=== PATIENT | male | born 1940 | race Caucasian/White ===

== ENCOUNTER 2024-04-23 13:07 | Emergency (ER) | payer BC ==
[2024-04-23 13:30] VITALS: RESP 16
[2024-04-23 13:44] VITALS: PULSE 80
[2024-04-23 13:54] LABS: Basophils # (A) 0.1 k/uL (0-0.2); Basophils % (A) 1 %; Eosinophils # (A) 0.1 k/uL (0-0.7); Eosinophils % (A) 1 %; HCT 41.7 % (39.0-53.0); Lymphocytes # (A) 1.9 k/uL (1.0-4.8); Lymphocytes % (A) 20 %; MCH 31.7 pg (25.0-35.0); MCHC 33.6 g/dL (31.0-37.0); MCV 94.5 fL (80.0-100.0); Mean Platelet Volume 7.7; Monocytes # (A) 0.6 k/uL (0-1.0); Monocytes % (A) 7 %; Neutrophils # (A) 6.7 k/uL (1.3-7.7); Neutrophils % (A) 70 %; Platelet Count 383 k/uL (150-450); RBC 4.42 m/uL (4.30-5.90); RDW 12.4 % (11.5-15.5); WBC 9.6 k/uL (3.8-10.6)
--- NOTE | 2024-04-23 14:01 | XR ---
EXAMINATION TYPE: XR ribs LT w pa chest xray DATE OF EXAM: 04/23/2024 1:54 PM COMPARISON: 07/29/2009. CLINICAL INDICATION: Male, 83 years old with history of sycope, chest wall pain; PHH, pain TECHNIQUE: XR ribs LT w pa chest xray; Frontal and oblique views of the ribs with frontal chest radio graph. FINDINGS: Somewhat limited exam due to overlapping structures. The ribs have a normal appearance. No evidence of fracture. Overall, the lungs are clear. The cardiac silhouette is normal in size. The remaining osseous structures are intact. IMPRESSION: No displaced fractures definitively visualized. [facility], , 04/23/2024 1:59 PM
[2024-04-23 14:07] LABS: ALT 18 U/L (4-49); AST 24 U/L (17-59); African American GFR (CKD) >90 (>60 ml/min/1.73 sqM); Albumin 4.4 g/dL (3.5-5.0); Alkaline Phosphatase 67 U/L (38-126); Anion Gap 11 mmol/L; Blood Urea Nitrogen 17 mg/dL (9-20); Calcium 9.8 mg/dL (8.4-10.2); Carbon Dioxide 23 mmol/L (22-30); Chloride 100 mmol/L (98-107); Glucose 157 mg/dL (74-99); INR 0.9 (<1.2); Magnesium 1.9 mg/dL (1.6-2.3); Non-African American GFR(CKD) 79 (>60 ml/min/1.73 sqM); Partial Thromboplastin Time 24.6 sec (22.0-30.0); Potassium 4.3 mmol/L (3.5-5.1); Prothrombin Time 10.6 sec (10.0-12.5); Sodium 134 mmol/L (137-145); Total Bilirubin 0.3 mg/dL (0.2-1.3); Total Protein 6.7 g/dL (6.3-8.2)
--- NOTE | 2024-04-23 15:04 | CT ---
EXAMINATION TYPE: CT brain cspine wo con DATE OF EXAM: 04/23/2024 2:07 PM COMPARISON: None available. CLINICAL INDICATION: Male, 83 years old with history of syncope; FALL/SYNCOPE TECHNIQUE: Brain: Multiple axial CT images of the brain were obtained without IV contrast. Cspine: Axial CT images from the skull base to the inferior aspect of T2 we obtained without intraven ous contrast. Coronal and sagittal reformatted images were also reviewed. . CT DLP: 1407.4 mGycm, Automated exposure control for dose reduction was used. FINDINGS: Brain: No acute intraparenchymal hemorrhage. Small relatively isodense subdural hematoma along the left fron toparietal convexity measuring up to 5 mm in greatest diameter (coronal image 44). There is minimal 2 mm of rightward shift of the septum pellucidum. Ventricles and sulci are prominent compatible genera lized cerebral volume loss. Vascular calcifications involving the carotid and vertebral arteries. Pat herminia periventricular and subcortical white matter hypoattenuation likely reflect chronic microvascular ischemic disease. No depressed calvarial fracture. Cervical spine: Fracture: None. Osseous structures: Multilevel intervertebral disc space loss and associated endplate degenerative ch anges. Anterior ossified formation noted at multiple levels. Mild anterolisthesis of C2 on C3. Revers al of the normal cervical spine lordotic curvature. Spinal canal/Neural Foramina: Multilevel facet arthropathy and uncovertebral hypertrophy in combinati on with posterior disc osteophyte complex disease cause varying degrees of spinal canal and neural fo raminal stenosis. Overall, evaluation of the spinal canal severely limited due to motion and streak a rtifact. Neck soft tissues: Prevertebral soft tissues are within normal limits. Other: The airway is patent. The lung apices demonstrate 5 over nodule in the medial right lung apex (image 111). Fluid distention of the esophagus suggesting reflux. IMPRESSION: 1. Small isodense subdural hematoma along the left frontoparietal convexity measuring up to 5 mm in greatest diameter. Minimal associated rightward midline shift as above. 2. No acute fracture or traumatic subluxation of the cervical spine. Multilevel cervical spine degen erative changes as above. 3. Fluid distention of the upper thoracic esophagus suggesting significant reflux. *Critical findings were discussed with Dr. Stone at 2:54 PM on 04/23/2024. [facility], Workstation: [id number], 04/23/2024 3:02 PM
[2024-04-23 15:23] VITALS: BP 136/74; TEMP 97.8
--- NOTE | 2024-04-23 15:46 | ED ---
General Adult HPI - General Chief complaint: Syncope Stated complaint: Syncope Time Seen by Provider: 04/23/24 13:10 Source: patient, EMS Mode of arrival: EMS - History of Present Illness Initial comments: 83-year-old male presents emergency department after a syncopal episode. Patient was out eating lunch with his family when they state that he slumped over in the chair and slowly fell all the way down to the ground. They did not believe that he hit his head. Patient did sustain some chest wall trauma and is complaining of some left-sided chest pain to palpation. Patient was only out for a couple of seconds. By the time EMS arrived he was alert and oriented x 4. Family states that he lives alone. He does have some memory issues. He denies any other falls recently. Patient denies having any inciting symptoms before the episode happened. He denies chest pain, shortness of breath. No visual changes. Patient has no headache, nausea or vomiting. Patient is "prediabetic". Glucose was within normal limits. He was placed in a c-collar due to protocol. Patient denies any pain, numbness or tingling in his arms or legs. No other alleviating, precipitating or modifying factors - Related Data Allergies Allergy/AdvReac Type Severity Reaction Status Date / Time No Known Allergies Allergy Verified 04/23/24 13:30 Review of Systems ROS Statement: Those systems with pertinent positive or pertinent negative responses have been documented in the HPI. ROS Other: All systems not noted in ROS Statement are negative. Past Medical History Past Medical History: Hyperlipidemia, Hypertension, Myocardial Infarction (DC) Additional Past Medical History / Comment(s): Pre-diabetic, Alzheimer's Disease, DC in 1983, Small isodense subdural hematoma along the left frontoparietal convexity measuring up to 5mm (04/23/24) History of Any Multi-Drug Resistant Organisms: None Reported Past Surgical History: Adenoidectomy, Tonsillectomy Past Psychological History: No Psychological Hx Reported Smoking Status: Never smoker Past Alcohol Use History: Rare Past Drug Use History: None Reported General Exam General appearance: alert, in no apparent distress Head exam: Present: atraumatic, normocephalic, normal inspection, other (No obvious external signs of injury) Eye exam: Present: normal appearance, PERRL, EOMI. Absent: scleral icterus, conjunctival injection, periorbital swelling ENT exam: Present: normal exam, mucous membranes moist Neck exam: Present: normal inspection. Absent: tenderness, meningismus, lymphadenopathy Respiratory exam: Present: normal lung sounds bilaterally, chest wall tenderness (Over the left anterior chest wall). Absent: respiratory distress, wheezes, rales, rhonchi, stridor Cardiovascular Exam: Present: regular rate, normal rhythm, normal heart sounds. Absent: systolic murmur, diastolic murmur, rubs, gallop, clicks GI/Abdominal exam: Present: soft, normal bowel sounds. Absent: distended, tenderness, guarding, rebound, rigid Extremities exam: Present: normal inspection, full ROM, normal capillary refill. Absent: tenderness, pedal edema, joint swelling, calf tenderness Back exam: Present: normal inspection Neurological exam: Present: alert, oriented X3, CN II-XII intact Psychiatric exam: Present: normal affect, normal mood Skin exam: Present: warm, dry, intact, normal color. Absent: rash Course Vital Signs 04/23/24 04/23/24 04/23/24 13:17 13:44 15:20 Temperature 98.3 F 97.8 F Pulse Rate 81 80 80 Respiratory 16 16 16 Rate Blood Pressure 125/68 121/67 136/74 O2 Sat by Pulse 98 95 97 Oximetry Medical Decision Making - Medical Decision Making Was pt. sent in by a medical professional or institution (MARJORIE Sandoval, RETAIL INVENTORY CONTROL CLERK, urgent care, hospital, or fpc...) When possible be specific @ -No Did you speak to anyone other than the patient for history (EMS, parent, family, police, friend...)? What history was obtained from this source @ -Spoke with daughter, son and EMS for history Did you review nursing and triage notes (agree or disagree)? Why? @ -I reviewed and agree with nursing and triage notes Were old charts reviewed (outside hosp., previous admission, EMS record, old EKG , old radiological studies, urgent care reports/EKG's, fpc records)? Report findings @ -No old charts available for review Differential Diagnosis (chest pain, altered mental status, abdominal pain women, abdominal pain men, vaginal bleeding, weakness, fever, dyspnea, syncope, headache, dizziness, GI bleed, back pain, seizure, CVA, palpatations, mental health, musculoskeletal)? @ -Differential Syncope: Valvular disease, hypertrophic cardiomyopathy, pulmonary embolism, tamponade, tachycardia, bradycardia, DC, hypovolemia, hemorrhage, dissection, anemia, intracranial hemorrhage, seizure, hypoglycemia, carbon monoxide poisoning, this is not meant to be an all-inclusive list. EKG interpreted by me (3pts min.). @ -Yes and demonstrates sinus rhythm with a rate of 80. LA interval 208. QRS 96. QTc of 394. No acute ST segment elevations or depressions X-rays interpreted by me (1pt min.). @ -yes and demonstrates no acute process CT interpreted by me (1pt min.). @ -yes. CT brain demonstrates subdural hematoma along the left frontoparietal convexity measuring up to 5 mm in greatest diameter. Minimal midline shift of 2 mm. No fractures in the cervical spine. U/S interpreted by me (1pt. min.). @ -None done What testing was considered but not performed or refused? (CT, X-rays, U/S, labs)? Why? @ -None What meds were considered but not given or refused? Why? @ -None Did you discuss the management of the patient with other professionals (professionals i.e. , PA, RETAIL INVENTORY CONTROL CLERK, lab, RT, psych nurse, long term care social worker, folder operator, teacher, legal compliance officer, case managers)? Give summary @ -No Was smoking cessation discussed for >3mins.? @ -No Was critical care preformed (if so, how long)? @ -yes, 35 minutes for management of sdh Were there social determinants of health that impacted care today? How? (Homelessness, low income, unemployed, alcoholism, drug addiction, transportation, low edu. Level, literacy, decrease access to med. care, detention, rehab)? @ -No Was there de-escalation of care discussed even if they declined (Discuss DNR or withdrawal of care, Hospice)? DNR status @ -No What co-morbidities impacted this encounter? (DM, HTN, Smoking, COPD, CAD, Cancer, CVA, ARF, Chemo, Hep., AIDS, mental health diagnosis, sleep apnea, morbid obesity)? @ -Alzheimer's, hypertension Was patient admitted / discharged? Hospital course, mention meds given and route, prescriptions, significant lab abnormalities, going to OR and other pertinent info. @ -Upon arrival patient seen and evaluated in room 28. Thorough history and physical exam was performed. I did remove the patient's c-collar as he has no neck pain. Patient is alert and oriented x 4 at this time. He does admit to some left-sided chest wall pain. Twelve-lead EKG is performed. Patient placed on continuous pulse ox and cardiac monitoring. Laboratory studies are conducted. Chest x-ray with rib series is performed. I also performed a CT of the patient's head as it is not clear if the patient did or did not have head injury. CT does demonstrate subdural hematoma which appears to be subacute. I questioned the patient about any recent falls for which he denies having any. I did speak with them in regards to need for further syncopal workup but also evaluation by neurosurgery for the subdural. Aware that our facility does not have neurosurgical capabilities. They were agreeable to transfer. Patient be transferred to [facility]. Patient is excepted by Dr. Troy and Dr. Cobian. Undiagnosed new problem with uncertain prognosis? @ -yes Drug Therapy requiring intensive monitoring for toxicity (Heparin, Nitro, Insulin, Cardizem)? @ -No Were any procedures done? @ -No Diagnosis/symptom? @ -Acute syncope, subacute subdural Acute, or Chronic, or Acute on Chronic? @ -Acute, subacute Uncomplicated (without systemic symptoms) or Complicated (systemic symptoms)? @ -Complicated Side effects of treatment? @ -No Exacerbation, Progression, or Severe Exacerbation? @ -No Poses a threat to life or bodily function? How? (Chest pain, USA, DC, pneumonia, PE, COPD, DKA, ARF, appy, cholecystitis, CVA, Diverticulitis, Homicidal, Suicidal, threat to staff... and all critical care pts) @ -yes, as patient has subdural - Lab Data Result diagrams: 04/23/24 13:40 04/23/24 13:40 Lab Results 04/23/24 04/23/24 04/23/24 Range/Units 13:40 13:40 13:40 WBC 9.6 (3.8-10.6) k/uL RBC 4.42 (4.30-5.90) m/uL Hgb 14.0 (13.0-17.5) gm/dL Hct 41.7 (39.0-53.0) % MCV 94.5 (80.0-100.0) fL MCH 31.7 (25.0-35.0) pg MCHC 33.6 (31.0-37.0) g/dL RDW 12.4 (11.5-15.5) % Plt Count 383 (150-450) k/uL MPV 7.7 Neutrophils % 70 % Lymphocytes % 20 % Monocytes % 7 % Eosinophils % 1 % Basophils % 1 % Neutrophils # 6.7 (1.3-7.7) k/uL Lymphocytes # 1.9 (1.0-4.8) k/uL Monocytes # 0.6 (0-1.0) k/uL Eosinophils # 0.1 (0-0.7) k/uL Basophils # 0.1 (0-0.2) k/uL PT 10.6 (10.0-12.5) sec INR 0.9 (<1.2) APTT 24.6 (22.0-30.0) sec Sodium 134 L (137-145) mmol/L Potassium 4.3 (3.5-5.1) mmol/L Chloride 100 (98-107) mmol/L Carbon Dioxide 23 (22-30) mmol/L Anion Gap 11 mmol/L BUN 17 (9-20) mg/dL Creatinine 0.89 (0.66-1.25) mg/dL Est GFR (CKD-EPI)AfAm >90 (>60 ml/min/1.73 sqM) Est GFR (CKD-EPI)NonAf 79 (>60 ml/min/1.73 sqM) Glucose 157 H (74-99) mg/dL Calcium 9.8 (8.4-10.2) mg/dL Magnesium 1.9 (1.6-2.3) mg/dL Total Bilirubin 0.3 (0.2-1.3) mg/dL AST 24 (17-59) U/L ALT 18 (4-49) U/L Alkaline Phosphatase 67 (38-126) U/L Troponin I (0.000-0.034) ng/mL Total Protein 6.7 (6.3-8.2) g/dL Albumin 4.4 (3.5-5.0) g/dL 04/23/24 Range/Units 13:40 WBC (3.8-10.6) k/uL RBC (4.30-5.90) m/uL Hgb (13.0-17.5) gm/dL Hct (39.0-53.0) % MCV (80.0-100.0) fL MCH (25.0-35.0) pg MCHC (31.0-37.0) g/dL RDW (11.5-15.5) % Plt Count (150-450) k/uL MPV Neutrophils % % Lymphocytes % % Monocytes % % Eosinophils % % Basophils % % Neutrophils # (1.3-7.7) k/uL Lymphocytes # (1.0-4.8) k/uL Monocytes # (0-1.0) k/uL Eosinophils # (0-0.7) k/uL Basophils # (0-0.2) k/uL PT (10.0-12.5) sec INR (<1.2) APTT (22.0-30.0) sec Sodium (137-145) mmol/L Potassium (3.5-5.1) mmol/L Chloride (98-107) mmol/L Carbon Dioxide (22-30) mmol/L Anion Gap mmol/L BUN (9-20) mg/dL Creatinine (0.66-1.25) mg/dL Est GFR (CKD-EPI)AfAm (>60 ml/min/1.73 sqM) Est GFR (CKD-EPI)NonAf (>60 ml/min/1.73 sqM) Glucose (74-99) mg/dL Calcium (8.4-10.2) mg/dL Magnesium (1.6-2.3) mg/dL Total Bilirubin (0.2-1.3) mg/dL AST (17-59) U/L ALT (4-49) U/L Alkaline Phosphatase (38-126) U/L Troponin I <0.012 (0.000-0.034) ng/mL Total Protein (6.3-8.2) g/dL Albumin (3.5-5.0) g/dL Disposition Clinical Impression: Syncope, Subdural hematoma Disposition: OTHER INSTITUTION NOT DEFINED Condition: Serious Is patient prescribed a controlled substance at d/c from ED?: No Referrals: Raphael Laura MD [Primary Care Provider] - 1-2 days Time of Disposition: 15:46 - Out of Hospital Transfer - Req. Specs Out of Hospital Transfer - Requested Specifics: Other Emergency Center ([facility])
== END 2024-04-23 15:55 | disposition other institution (70) ==
LOC: EC 13:07
DX: R55 Syncope and collapse (principal); S06.5XAA Traumatic subdural hemorrhage with loss of consciousness status unknown, initial encounter; G30.9 Alzheimer's disease, unspecified; I10 Essential (primary) hypertension; I25.2 Old myocardial infarction; E78.5 Hyperlipidemia, unspecified; W19.XXXA Unspecified fall, initial encounter
CPT/HCPCS: 36415; 70450; 72125; 80053; 83735; 84484; 85025; 85610; 85730; 93005; 99291